=== PATIENT | male | born 1970 | race Caucasian/White ===

== ENCOUNTER → 2018-07-08 | Emergency (ER) | payer OTHER ==
[~2018-07-08] VITALS: Ht 185.4 cm; Wt 83.9 kg
== END | disposition left against medical advice (07) ==
LOC: ER 15:29
DX: Z53.20 Procedure and treatment not carried out because of patient's decision for unspecified reasons (principal)

== ENCOUNTER 2019-05-23 15:08 | Emergency (ER) | payer OTHER ==
[~2019-05-23] VITALS: Ht 188 cm; Wt 77.1 kg
== END 2019-05-23 17:44 | disposition home or self-care (01) ==
LOC: ER 15:08
DX: B34.9 Viral infection, unspecified (principal)